=== PATIENT | female | born 1975 | race Caucasian/White ===

== ENCOUNTER 2016-08-17 19:12 | Emergency (ER) | payer SELFPAY ==
[2016-08-17] MEDS ORDERED: CLINDAMYCIN HCL 150 MG CAPSULE PO ONE (20:22)
--- NOTE | 2016-08-17 20:26 | ER Document Report ---
HPI - HPI Patient complains to provider of: r facial swelling Onset: Yesterday Onset/Duration: Gradual Quality of pain: Achy Pain Level: 2 Context: Complains of right jaw swelling that started yesterday. Patient states that she has increased swelling and pain with eating. Patient denies any fever or trauma. Patient denies any ear pain or dental infection. Associated Symptoms: Other - Jaw tenderness. denies: Fever Exacerbated by: Food Relieved by: Denies Similar symptoms previously: No Recently seen / treated by doctor: No - ROS ROS below otherwise negative: Yes Systems Reviewed and Negative: Yes All other systems reviewed and negative - CONSTITUTIONAL Constitutional: DENIES: Fever, Chills - EENT Notes: Jaw pain and swelling - NEURO Neurology: DENIES: Headache, Weakness - RESPIRATORY Respiratory: DENIES: Coughing - GASTROINTESTINAL Gastrointestinal: DENIES: Nausea - REPRODUCTIVE Reproductive: DENIES: : - MUSCULOSKELETAL Musculoskeletal: DENIES: Back Pain, Neck Pain - DERM Skin Color: Normal Past Medical History - General Information source: Patient - Social History Smoking Status: Current Every Day Smoker Frequency of alcohol use: Occasional Drug Abuse: None 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[employer] Family History: Reviewed & Not Pertinent Patient has suicidal ideation: No Patient has homicidal ideation: No - Past Medical History Cardiac Medical History: Reports: Hx Heart Attack, Hx Hypercholesterolemia, Hx Hypertension Renal/ Medical History: Denies: Hx Peritoneal Dialysis Psychiatric Medical History: Reports: Hx Attention Deficit Hyperactivity Disorder Past Surgical History: Reports: Hx Cardiac Surgery - Immunizations Hx Diphtheria, Pertussis, Tetanus Vaccination: No Vertical Provider Document - CONSTITUTIONAL Agree With Documented VS: Yes Exam Limitations: No Limitations General Appearance: WD/WN, No Apparent Distress - INFECTION CONTROL TRAVEL OUTSIDE OF THE [place] IN LAST 30 DAYS: No COUNTRY TRAVELED TO/FROM: [facility] - [facility] HEENT: Atraumatic, Normocephalic Notes: Parotid gland tenderness and swelling, no redness no purulent drainage noted from salivary duct - NECK Neck: Normal Inspection, Supple. negative: Lymphadenopathy-Left, Lymphadenopathy-Right - RESPIRATORY Respiratory: Breath Sounds Normal, No Respiratory Distress O2 Sat by Pulse Oximetry: 98 - CARDIOVASCULAR Cardiovascular: Regular Rate, Regular Rhythm - MUSCULOSKELETAL/EXTREMETIES Musculoskeletal/Extremeties: MAEW - NEURO Level of Consciousness: Awake, Alert, Appropriate Motor/Sensory: No Motor Deficit - DERM Integumentary: Warm, Dry Course - Re-evaluation Re-evalutation: 08/17/16 20:24 The patient has been informed that they may have pre-hypertension or hypertension based on a blood pressure reading in the emergency department. I recommend that patient call the primary care provider listed on their discharge instructions or a physician of their choice by this week to arrange follow-up for further evaluation of possible pre-hypertension her hypertension. Patient given an additional handout on parotitis. Patient given good return precautions. She advised that she will need to follow-up with ear nose and throat doctor - Vital Signs Vital signs: Temp Pulse Resp BP Pulse Ox 98.9 F 101 H 22 H 160/91 H 98 08/17/16 19:34 08/17/16 19:34 08/17/16 19:34 08/17/16 19:34 08/17/16 19:34 Discharge - Discharge Clinical Impression: Parotitis Condition: Stable Disposition: HOME, SELF-CARE Instructions: Acute Parotid Gland Swelling ([facility]), Clindamycin ([facility]) Additional Instructions: Return immediately for any new or worsening symptoms Followup with your primary care provider, call tomorrow to make a followup appointment Prescriptions: Clindamycin HCl [Cleocin Hcl] 300 mg PO QID #28 capsule Referrals: [facility] [Provider Group] - Follow up tomorrow
[2016-08-17 21:23] VITALS: BP 149/88
== END 2016-08-17 21:05 | disposition home or self-care (01) ==
LOC: ER 19:12
DX: K11.20 Sialoadenitis, unspecified (principal); R22.0 Localized swelling, mass and lump, head; R68.84 Jaw pain; F17.200 Nicotine dependence, unspecified, uncomplicated; E78.00 Pure hypercholesterolemia, unspecified; I10 Essential (primary) hypertension; I25.2 Old myocardial infarction
CPT/HCPCS: 99283

== ENCOUNTER 2016-11-21 15:30 | Emergency (ER) | payer SELFPAY ==
--- NOTE | 2016-11-21 15:58 | ER Document Report ---
ED Medical Screen (RME) - General Chief Complaint: Dizziness Stated Complaint: DIZZINESS Time Seen by Provider: 11/21/16 15:57 Mode of Arrival: Wheelchair Information source: Patient TRAVEL OUTSIDE OF THE [place] IN LAST 30 DAYS: No COUNTRY TRAVELED TO/FROM: [facility] - [facility] Patient complains to provider of: Dizziness Notes: 11/21/16 15:58 Patient is a 40-year-old female with a history of hypertension who presents to the emergency room today complaining of dizziness, initially she felt as though she was going to pass out, she had a episode of chest heaviness and nausea, shortly thereafter she felt like the room was spinning, the symptoms have since resolved but now she feels extremely tired and fatigued - Related Data Allergies/Adverse Reactions: ibuprofen [From Motrin] Allergy (Verified 11/21/16 15:34) Penicillins Allergy (Verified 11/21/16 15:34) Past Medical History - Past Medical History Cardiac Medical History: Reports: Hx Heart Attack, Hx Hypercholesterolemia, Hx Hypertension Renal/ Medical History: Denies: Hx Peritoneal Dialysis Psychiatric Medical History: Reports: Hx Attention Deficit Hyperactivity Disorder Past Surgical History: Reports: Hx Cardiac Surgery - Immunizations Hx Diphtheria, Pertussis, Tetanus Vaccination: No Physical Exam - Vital signs Vitals: Temp Pulse Resp BP Pulse Ox 97.4 F 99 22 H 136/71 H 94 11/21/16 15:34 11/21/16 15:34 11/21/16 15:34 11/21/16 15:34 11/21/16 15:34 Course - Vital Signs Vital signs: Temp Pulse Resp BP Pulse Ox 97.4 F 99 22 H 136/71 H 94 11/21/16 15:34 11/21/16 15:34 11/21/16 15:34 11/21/16 15:34 11/21/16 15:34
[2016-11-21 16:25] LABS: ABSOLUTE BASOPHILS # (AUTO) 0.1 10^3/uL (0.0-0.2); ABSOLUTE EOSINOPHILS # (AUTO) 0.1 10^3/uL (0.0-0.6); ABSOLUTE MONOCYTES (AUTO) 0.9 10^3/uL (0.1-1.4); ABSOLUTE NEUT (AUTO) 13.7 10^3/uL (1.7-8.2); BASOPHILS % (AUTO) 0.6 % (0-2); EOSINOPHILS % (AUTO) 0.6 % (0-6); HEMATOCRIT 44.7 % (36.0-47.0); HEMOGLOBIN 15.6 g/dL (12.0-15.5); HGB HCT DIFFERENCE 2.1; MEAN CORPUSCULAR HEMOGLOBIN 32.4 pg (27.0-33.4); MEAN CORPUSCULAR VOLUME 93 fl (80-97); MONOCYTES % (AUTO) 5.3 % (3-13); RED BLOOD COUNT 4.83 10^6/uL (3.72-5.28); RED CELL DISTRIBUTION WIDTH 14.1 % (11.5-14.0); SEGMENTED NEUTROPHILS % (AUTO) 81.5 % (42-78); WHITE BLOOD COUNT 16.8 10^3/uL (4.0-10.5)
[2016-11-21 16:44] LABS: ALANINE AMINOTRANSFERASE 39 U/L (9-52); ALBUMIN 4.4 g/dL (3.5-5.0); ALKALINE PHOSPHATASE 113 U/L (38-126); ANION GAP 11 (5-19); ASPARTATE AMINO TRANSFERASE 28 U/L (14-36); BILIRUBIN,DIRECT 0.5 mg/dL (0.0-0.4); BILIRUBIN,TOTAL 0.7 mg/dL (0.2-1.3); BLOOD UREA NITROGEN 16 mg/dL (7-20); CALCIUM 9.6 mg/dL (8.4-10.2); CARBON DIOXIDE 25 mmol/L (22-30); CHLORIDE 105 mmol/L (98-107); CREATINE KINASE 31 U/L (30-135); CREATININE RESULT 0.73 mg/dL (0.52-1.25); GLUCOSE 143 mg/dL (75-110); POTASSIUM 4.3 mmol/L (3.6-5.0); SODIUM 141.2 mmol/L (137-145); TOTAL PROTEIN 8.4 g/dL (6.3-8.2)
[2016-11-21 16:55] LABS: CREATINE KINASE MB 0.26 ng/mL (<4.55); TROPONIN I < 0.012 ng/mL
--- NOTE | 2016-11-21 17:34 | ER Document Report ---
ED Dizziness/Weakness <DOMURIAH - Last Filed: 11/21/16 20:20> - General Mode of Arrival: Wheelchair Information source: Patient TRAVEL OUTSIDE OF THE [place] IN LAST 30 DAYS: No COUNTRY TRAVELED TO/FROM: [place] <YODIT GUZMAN - Last Filed: 11/22/16 22:32> - General Chief Complaint: Dizziness Stated Complaint: DIZZINESS Time Seen by Provider: 11/21/16 15:57 Notes: 40 yo smoker, htn, hyperlipidemic, non dm, LMP IUD Merina, female c/o episode of dizziness like she was going to pass out few minutes at 2 pm at friends house. Playing care game, took a break sitting on sofa, room was spinning, got hot, sweaty, nausea, felt she was heavy, felt someone sitting on her chest, couldn't lift arms up- symptoms lasted 10minutes or more. [place] like she was [place]. Unsteady on feet when she stood up to come to ER-friend drove her. Never had this sx before. Have not felt right since- feels tired and body feels heavy. Overslept this am, has not eaten today, munched on some things. "bladder discomfot" thinks she has UTI. Slight headache top of head last few days. Taste off. PCP: Dr Houston Dimas. No dizziness, chest heaviness, or vertigo. fam hx: mother stroike at age 38 (YODIT GUZMAN) - Related Data Allergies/Adverse Reactions: ibuprofen [From Motrin] Allergy (Verified 11/21/16 15:34) Penicillins Allergy (Verified 11/21/16 15:34) Past Medical History - General Information source: Patient - Social History Smoking Status: Current Every Day Smoker Frequency of alcohol use: None Drug Abuse: None Occupation: suppposed to move to [place] today, truck broke down Lives with: Alone Family History: Reviewed & Not Pertinent - Past Medical History Cardiac Medical History: Reports: Hx Heart Attack, Hx Hypercholesterolemia, Hx Hypertension Renal/ Medical History: Denies: Hx Peritoneal Dialysis Psychiatric Medical History: Reports: Hx Attention Deficit Hyperactivity Disorder Past Surgical History: Reports: Hx Cardiac Surgery - Immunizations Hx Diphtheria, Pertussis, Tetanus Vaccination: No <YODIT GUZMAN - Last Filed: 11/22/16 22:32> Review of Systems - Review of Systems Constitutional: See HPI EENT: No symptoms reported Cardiovascular: See HPI Respiratory: No symptoms reported Gastrointestinal: No symptoms reported Genitourinary: No symptoms reported Female Genitourinary: No symptoms reported Musculoskeletal: No symptoms reported Skin: No symptoms reported Hematologic/Lymphatic: No symptoms reported Neurological/Psychological: See HPI <YODIT GUZMAN - Last Filed: 11/22/16 22:32> Physical Exam <URIAH FERNANDES - Last Filed: 11/21/16 20:20> - Vital signs Interpretation: Normal - General General appearance: Appears well, Alert In distress: None - HEENT Head: Normocephalic, Atraumatic Eyes: Normal Conjunctiva: Normal Extraocular movements intact: Yes Pupils: PERRL Tympanic membrane: Normal Mucous membranes: Normal Neck: Normal - Respiratory Respiratory status: No respiratory distress Chest status: Nontender Breath sounds: Normal Chest palpation: Normal - Cardiovascular Rhythm: Regular Heart sounds: Normal auscultation Murmur: No - Abdominal Inspection: Normal Distension: No distension Bowel sounds: Normal Tenderness: Nontender. No: Tender Organomegaly: No organomegaly - Back Back: Normal, Nontender - Extremities General upper extremity: Normal inspection, Nontender, Normal color, Normal ROM , Normal temperature General lower extremity: Normal inspection, Nontender, Normal color, Normal ROM , Normal temperature, Normal weight bearing. No: Aristides's sign - Neurological Neuro grossly intact: Yes Cognition: Normal Orientation: AAOx4 Jose Daniel Coma Scale Eye Opening: Spontaneous Jose Daniel Coma Scale Verbal: Oriented Jose Daniel Coma Scale Motor: Obeys Commands Jose Daniel Coma Scale Total: 15 Speech: Normal Motor strength normal: LUE, RUE, LLE, RLE Sensory: Normal - Psychological Associated symptoms: Normal affect, Normal mood - Skin Skin Temperature: Warm Skin Moisture: Dry Skin Color: Normal Skin irregularity: negative: Rash <YODIT GUZMAN - Last Filed: 11/22/16 22:32> - Vital signs Vitals: Temp Pulse Resp BP Pulse Ox 97.4 F 99 22 H 136/71 H 94 11/21/16 15:34 11/21/16 15:34 11/21/16 15:34 11/21/16 15:34 11/21/16 15:34 Notes: obese (YODIT GUZMAN) - Notes Notes: obese (YODIT GUZMAN) - Neurological Notes: slight dizzy without vertigo when sitting up in bed, orthostatics OK (YODIT GZUMAN) Course - Laboratory Result Diagrams: 11/21/16 16:15 11/21/16 16:15 <URIAH FERNANDES - Last Filed: 11/21/16 20:20> - Laboratory Result Diagrams: 11/21/16 16:15 11/21/16 16:15 <YODIT GUZMAN - Last Filed: 11/22/16 22:32> - Re-evaluation Re-evalutation: 11/21/16 20:20 Patient refusing to wait for her repeat blood work, she states she will refuse admission and transport to another facility if that is whats indicated. Patient is requesting to leave. After performing a Medical Screening Examination, I spoke with the patient at length in regards to leaving the hospital against medical advice. I do not believe the patient should leave but the patient is alert oriented x4, understands the risks and benefits of staying and leaving including disability and . Pt understands that he can return at any time for further care and is more than welcome to do so. Pt verbalizes this understanding. (URIAH FERNANDES) 11/21/16 17:[address] zamudio who pivot her, no CT needed. get 4 hour troponin level. 11/21/16 18:50 Patient now states that she is having heartburn all day with an acid feeling in her throat. She usually takes Pepcid AC but she ran out of it. He had an aspirin 324 mg since it was recommended to get a 4 hour troponin level and a dose of Prevacid 30 mg ODT and Pepcid 40 mg p.o. ordered, she is eating barbecued sandwich that a friend brought her. 11/21/16 19:23 care transferred to uriah BALDERRAMA at the bedside. (YODIT GUZMAN) - Vital Signs Vital signs: Temp Pulse Resp BP Pulse Ox 97.8 F 88 21 H 120/75 97 11/21/16 19:15 11/21/16 17:51 11/21/16 20:01 11/21/16 20:01 11/21/16 20:01 - Laboratory Laboratory results interpreted by me: 11/21/16 11/21/16 11/21/16 16:15 16:15 16:55 WBC 16.8 H Hgb 15.6 H RDW 14.1 H Seg Neutrophils % 81.5 H Lymphocytes % 12.0 L Absolute Neutrophils 13.7 H Glucose 143 H Direct Bilirubin 0.5 H Total Protein 8.4 H Urine Urobilinogen 2.0 H Discharge <URIAH FERNANDES - Last Filed: 11/21/16 20:20> <YODIT GUZMAN - Last Filed: 11/22/16 22:32> - Discharge Clinical Impression: Chest pain Condition: Stable Disposition: AGAINST MEDICAL ADVICE
--- NOTE | 2016-11-21 17:40 | EKG REPORT ---
SEVERITY:- NORMAL ECG - SINUS RHYTHM : Confirmed by: Myke Nunez MD 21-Nov-2016 17:40:01
[2016-11-21 18:06] LABS: APPEARANCE,URINE SLIGHTLY-CLOUDY; BILIRUBIN,URINE NEGATIVE (NEGATIVE); GLUCOSE, URINE NEGATIVE (NEGATIVE); KETONES,URINE NEGATIVE (NEGATIVE); LEUKOCYTE ESTERASE,URINE NEGATIVE (NEGATIVE); NITRITE,URINE NEGATIVE (NEGATIVE); PROTEIN,URINE NEGATIVE (NEGATIVE); URINE SPECIFIC GRAVITY 1.026
[2016-11-21] MEDS ORDERED: MECLIZINE HCL 25 MG TABLET PO ONE (18:08)
--- NOTE | 2016-11-21 18:44 | RADIOLOGY REPORT (SQ) ---
EXAM DESCRIPTION: CHEST PA/LAT COMPLETED DATE/TIME: 11/21/2016 6:08 pm REASON FOR STUDY: chest heaviness COMPARISON: 05/18/2015 EXAM PARAMETERS: NUMBER OF VIEWS: two views TECHNIQUE: Digital Frontal and Lateral radiographic views of the chest acquired. RADIATION DOSE: NA LIMITATIONS: none FINDINGS: LUNGS AND PLEURA: No acute opacities, masses or pneumothorax. No pleural effusion. MEDIASTINUM AND HILAR STRUCTURES: Stable. HEART AND VASCULAR STRUCTURES: Heart normal size. No evidence for failure. BONES: No acute findings. HARDWARE: None in the chest. OTHER: No other significant finding. IMPRESSION: No acute findings. TECHNICAL DOCUMENTATION: JOB ID: [id number] [employer]- All Rights Reserved
[2016-11-21] MEDS ORDERED: FAMOTIDINE 20 MG TABLET PO ONE (18:49)
[2016-11-21] MEDS ORDERED: LANSOPRAZOLE 30 MG TAB.RAP.DR PO ONE (18:49)
[2016-11-21] MEDS ORDERED: ASPIRIN 81 MG TABLET, CHEWABLE PO ONE (18:49)
[2016-11-21 20:11] VITALS: BP 120/75
== END 2016-11-21 20:25 | disposition left against medical advice (07) ==
LOC: ER 15:30
DX: R07.9 Chest pain, unspecified (principal); R42 Dizziness and giddiness; F17.200 Nicotine dependence, unspecified, uncomplicated; I25.2 Old myocardial infarction
CPT/HCPCS: 36415; 71020; 80053; 81001; 81025; 82550; 82553; 84484; 85025; 93005; 93010; 99284

== ENCOUNTER 2017-06-22 16:38 | Emergency (ER) | payer SELFPAY ==
--- NOTE | 2017-06-22 17:44 | ER Document Report ---
ED Medical Screen (RME) - General Chief Complaint: Dizziness Stated Complaint: WEAKNESS Time Seen by Provider: 06/22/17 17:34 Mode of Arrival: Ambulatory Information source: Patient Notes: 41-year-old female with a history of angina, palpitations, hypertension, hyperlipidemia, CAD presents with complaint of fatigue, dizziness, and intermittent chest pain. Chest pain is described as tightness, brief and chronic for the patient. Patient's symptoms started 4 days prior to arrival. She describes the dizziness as feeling off balance. She denies any recent falls or prior similar symptoms. Patient reports that she had a low blood pressure reading earlier today. She has not been taking any of her medications for approximately 6 months. She denies fever, chills, nausea, vomiting, nasal congestion, cough, chest pain, shortness of breath, dysuria. I have greeted and performed a rapid medical assessment of the patient. A comprehensive evaluation and assessment will be performed by another ED provider. Medical decision making, lab review/xrays if performed will be reviewed by the ED provider assuming care of the patient. PHYSICAL EXAMINATION: GENERAL: Well-appearing, well-nourished and in no acute distress. HEAD: Atraumatic, normocephalic. EYES: Pupils equal round extraocular movements intact, conjunctiva are normal. No nystagmus ENT: Nares patent NECK: Normal range of motion LUNGS: No respiratory distress, CTAB Musculoskeletal: Normal range of motion NEUROLOGICAL: Normal speech, normal gait. PSYCH: Normal mood, normal affect. SKIN: Warm, Dry, normal turgor, no rashes or lesions noted. TRAVEL OUTSIDE OF THE U.S. IN LAST 30 DAYS: No COUNTRY TRAVELED TO/FROM: [facility] - [facility] Onset: Last week Onset/Duration: Gradual Quality of pain: No pain Associated Symptoms: Dizzy/lightheaded Exacerbated by: Denies Relieved by: Denies Similar symptoms previously: No Recently seen / treated by doctor: No - Related Data Smoking: Non-smoker Frequency of alcohol use: Occasional Drug Abuse: None Allergies/Adverse Reactions: ibuprofen [From Motrin] Allergy (Verified 06/22/17 16:40) Penicillins Allergy (Verified 06/22/17 16:40) Past Medical History - Social History Chew tobacco use (# tins/day): No Frequency of alcohol use: None Drug Abuse: None - Past Medical History Cardiac Medical History: Reports: Hx Heart Attack, Hx Hypercholesterolemia, Hx Hypertension Renal/ Medical History: Denies: Hx Peritoneal Dialysis Psychiatric Medical History: Reports: Hx Attention Deficit Hyperactivity Disorder Past Surgical History: Reports: Hx Cardiac Surgery - Immunizations Hx Diphtheria, Pertussis, Tetanus Vaccination: No Physical Exam - Vital signs Vitals: Temp Pulse Resp BP Pulse Ox 97.3 F 92 22 H 151/101 H 98 06/22/17 16:42 06/22/17 16:42 06/22/17 16:42 06/22/17 16:42 06/22/17 16:42 Course - Vital Signs Vital signs: Temp Pulse Resp BP Pulse Ox 97.3 F 92 22 H 151/101 H 98 06/22/17 16:42 06/22/17 16:42 06/22/17 16:42 06/22/17 16:42 06/22/17 16:42
[2017-06-22 18:17] LABS: ABSOLUTE BASOPHILS # (AUTO) 0.1 10^3/uL (0.0-0.2); ABSOLUTE MONOCYTES (AUTO) 0.3 10^3/uL (0.1-1.4); ABSOLUTE NEUT (AUTO) 12.9 10^3/uL (1.7-8.2); BASOPHILS % (AUTO) 0.7 % (0-2); EOSINOPHILS % (AUTO) 0.1 % (0-6); HEMATOCRIT 44.5 % (36.0-47.0); HEMOGLOBIN 14.8 g/dL (12.0-15.5); LYMPHOCYTES % (AUTO) 7.1 % (13-45); MEAN CORPUSCULAR HGB CONC 33.2 g/dL (32.0-36.0); MEAN CORPUSCULAR VOLUME 90 fl (80-97); MONOCYTES % (AUTO) 1.9 % (3-13); PLATELET COUNT 274 10^3/uL (150-450); RED BLOOD COUNT 4.94 10^6/uL (3.72-5.28); RED CELL DISTRIBUTION WIDTH 13.6 % (11.5-14.0); SEGMENTED NEUTROPHILS % (AUTO) 90.2 % (42-78); TOTAL CELLS COUNTED % (AUTO) 100 %; WHITE BLOOD COUNT 14.3 10^3/uL (4.0-10.5)
[2017-06-22 18:23] LABS: AMORPHOUS SEDIMENT,URINE TRACE /HPF; APPEARANCE,URINE TURBID; BILIRUBIN,URINE NEGATIVE (NEGATIVE); COLOR,URINE YELLOW; GLUCOSE, URINE NEGATIVE (NEGATIVE); KETONES,URINE NEGATIVE (NEGATIVE); LEUKOCYTE ESTERASE,URINE SMALL (NEGATIVE); NITRITE,URINE NEGATIVE (NEGATIVE); PROTEIN,URINE NEGATIVE (NEGATIVE); URINE SPECIFIC GRAVITY 1.025; UROBILINOGEN,URINE NEGATIVE mg/dL (<2.0)
[2017-06-22 18:39] LABS: ALANINE AMINOTRANSFERASE 32 U/L (9-52); ALBUMIN 4.3 g/dL (3.5-5.0); ALKALINE PHOSPHATASE 82 U/L (38-126); ANION GAP 11 (5-19); ASPARTATE AMINO TRANSFERASE 21 U/L (14-36); BILIRUBIN,DIRECT 0.3 mg/dL (0.0-0.4); BILIRUBIN,TOTAL 0.5 mg/dL (0.2-1.3); BLOOD UREA NITROGEN 17 mg/dL (7-20); CARBON DIOXIDE 27 mmol/L (22-30); CHLORIDE 103 mmol/L (98-107); CREATINE KINASE 36 U/L (30-135); GLUCOSE 142 mg/dL (75-110); POTASSIUM 4.7 mmol/L (3.6-5.0); SODIUM 141.3 mmol/L (137-145)
[2017-06-22 18:53] LABS: CREATINE KINASE MB 0.29 ng/mL (<4.55)
[2017-06-22 18:54] LABS: TROPONIN I < 0.012 ng/mL
--- NOTE | 2017-06-22 19:39 | ER Document Report ---
ED General - General Chief Complaint: Dizziness Stated Complaint: WEAKNESS Time Seen by Provider: 06/22/17 17:34 Mode of Arrival: Ambulatory TRAVEL OUTSIDE OF THE [place] IN LAST 30 DAYS: No COUNTRY TRAVELED TO/FROM: [facility] Notes: Patient is a 41-year-old female with a history of angina, palpitations, hypertension, hyperlipidemia, CAD with IN 3 years ago and stent placed who presents to the ED complaining of generalized weakness. Patient states that she has occasional chest tightness which she has had chronically and currently has been asymptomatic for that for the last couple days. Patient states that she also developed some dizziness a few days ago, but has not been dizzy today. Patient states that she overall feels "okay" but feels weak. She is eating and drinking without any difficulties. She is urinating normally and having normal bowel movements. She has no concern of any pain. Denies any recent illness. Patient is a former smoker and denies IV drug use. She recently quit smoking about a month ago. Patient states that she has not been evaluated by primary care doctor in the last 6 months. Denies any headache, fever, head injury, neck pain, changes in vision/speech/mentation/hearing, URI, sore throat , chest pain, palpitations, syncope, cough, shortness of breath, wheeze, dyspnea , abdominal pain, nausea/vomiting/diarrhea, urinary retention, dysuria, hematuria, loss of control of bowel or bladder, numbness/tingling, muscle paralysis/weakness, or rash. No prolonged immobilization, recent surgery/trauma , previous DVT/PE, hormone use. - Related Data Allergies/Adverse Reactions: ibuprofen [From Motrin] Allergy (Verified 06/22/17 16:40) Penicillins Allergy (Verified 06/22/17 16:40) Past Medical History - General Information source: Patient - Social History Smoking Status: Former Smoker Chew tobacco use (# tins/day): No Frequency of alcohol use: None Drug Abuse: None Family History: Reviewed & Not Pertinent Patient has suicidal ideation: No Patient has homicidal ideation: No - Past Medical History Cardiac Medical History: Reports: Hx Heart Attack, Hx Hypercholesterolemia, Hx Hypertension Renal/ Medical History: Denies: Hx Peritoneal Dialysis Psychiatric Medical History: Reports: Hx Attention Deficit Hyperactivity Disorder Past Surgical History: Reports: Hx Cardiac Surgery - Immunizations Hx Diphtheria, Pertussis, Tetanus Vaccination: No Review of Systems - Review of Systems -: Yes All other systems reviewed and negative Physical Exam - Vital signs Vitals: Temp Pulse Resp BP Pulse Ox 97.3 F 92 22 H 151/101 H 98 06/22/17 16:42 06/22/17 16:42 06/22/17 16:42 06/22/17 16:42 06/22/17 16:42 - Notes Notes: PHYSICAL EXAMINATION: GENERAL: Well-appearing, well-nourished and in no acute distress. A&Ox4. Answers questions appropriately. HEAD: Atraumatic, normocephalic. EYES: Pupils equal round and reactive to light, extraocular movements intact, sclera anicteric, conjunctiva are normal. ENT: EAC clear b/l. TM's intact b/l without erythema, fluid, or perforation. Nares patent and without discharge. oropharynx clear without exudates. No tonsilar hypertrophy or erythema. Moist mucous membranes. No sinus tenderness. NECK: Normal range of motion, supple without lymphadenopathy. No kernig/ brudzinski. LUNGS: Breath sounds clear to auscultation bilaterally and equal. No wheezes rales or rhonchi. HEART: Regular rate and rhythm without murmurs, rubs, gallops. ABDOMEN: Soft, nontender, nondistended abdomen. No guarding, no rebound. No masses appreciated. Normal bowel sounds present. No CVA tenderness bilaterally. Musculoskeletal: FROM to passive/active. Strength 5+/5. Aristides neg. Extremities: No cyanosis, clubbing, or edema b/l. Peripheral pulses 2+. Capillary refill less than 3 seconds. NEUROLOGICAL: Cranial nerves grossly intact. Normal speech, normal gait. Normal sensory, motor exams PSYCH: Normal mood, normal affect. SKIN: Warm, Dry, normal turgor, no rashes or lesions noted. Course - Re-evaluation Re-evalutation: 06/22/17 21:46 Patient is an afebrile, well-hydrated, 41-year-old female who presents to the ED with generalized weakness unspecified. She has no other symptoms at this time. Vitals are acceptable. PE is otherwise unremarkable. CBC, CMP, EKG, cardiac enzymes 2, thyroid panel were unremarkable for any acute pathology. Her urinalysis did show what could be deemed as a mild UTI, the patient is currently symptomatic. I did review with Dr. Castellanos who is in agreement with treatment pending urine culture. Her abdomen is otherwise soft and nontender. She is nontoxic-appearing. She has no significant tachycardia, tachypnea, or hypoxia. PERC negative. heart score of 1. Patient has not had any chest pain or dyspnea on exertion. No other labs or imaging warranted at this time based on H&P. Patient is tolerating p.o. without any difficulties. Low suspicion for any sepsis, meningitis, severe dehydration, respiratory compromise, or other systemic emergent condition at this time. Patient is aware that condition can change from initial presentation and she needs to monitor symptoms closely and seek medical attention with any acute changes. Conservative measures otherwise for symptoms. Recheck with your PCM in 3-5 days. Return to the ED with any worsening/concerning symptoms otherwise as reviewed discharge. Patient is in agreement. - Vital Signs Vital signs: Temp Pulse Resp BP Pulse Ox 97.3 F 78 16 142/75 H 97 06/22/17 16:42 06/22/17 18:40 06/22/17 21:01 06/22/17 21:01 06/22/17 21:01 - Laboratory Result Diagrams: 06/22/17 17:52 06/22/17 17:52 Laboratory results interpreted by me: 06/22/17 06/22/17 06/22/17 16:50 17:52 17:52 WBC 14.3 H Seg Neutrophils % 90.2 H Lymphocytes % 7.1 L Monocytes % 1.9 L Absolute Neutrophils 12.9 H Glucose 142 H Urine Blood LARGE H Ur Leukocyte Esterase SMALL H Discharge - Discharge Clinical Impression: Generalized weakness Condition: Stable Disposition: HOME, SELF-CARE Additional Instructions: Maintain adequate fluid and food intake Take home medications as directed Low sodium/fat diet Exercise regularly Weight control Monitor blood pressure daily and keep a log Monitor symptoms for any acute changes Recheck with your PCM in 3-5 days Return to the ED with any worsening symptoms and/or development of fever, headache, chest pain, palpitations, syncope, shortness of breath, trouble breathing, abdominal pain, n/v/d, blood in stool/urine, loss of control of bowel /bladder, urinary retention, muscle weakness/paralysis, numbness/tingling, or other worsening symptoms that are concerning to you. Forms: Elevated Blood Pressure Referrals: [facility] [Provider Group] - Follow up as needed [facility] [Provider Group] - Follow up as needed
[2017-06-22 20:05] LABS: FREE T3 4.29 pg/mL (2.77-5.27); FREE T4 (FREE THYROXINE) 1.14 ng/dL (0.78-2.19)
[2017-06-22 20:18] LABS: THYROID STIMULATING HORMONE 0.72 uIU/mL (0.47-4.68)
[2017-06-22 21:03] VITALS: BP 142/75
--- NOTE | 2017-06-22 22:43 | EKG REPORT ---
SEVERITY:- NORMAL ECG - SINUS RHYTHM : Confirmed by: Jose Miller 22-Jun-2017 19:43:00
== END 2017-06-22 22:31 | disposition home or self-care (01) ==
LOC: ER 16:38
DX: R53.1 Weakness (principal); R42 Dizziness and giddiness; R07.9 Chest pain, unspecified; I10 Essential (primary) hypertension; I25.10 Atherosclerotic heart disease of native coronary artery without angina pectoris; I25.2 Old myocardial infarction; Z87.891 Personal history of nicotine dependence
CPT/HCPCS: 36415; 80053; 81001; 81025; 82550; 82553; 84439; 84443; 84481; 84484; 85025; 87086; 93005; 93010; 99284

== ENCOUNTER 2017-12-08 16:49 | Observation (INO) | payer SELFPAY ==
[2017-12-08] MEDS ORDERED: VANCOMYCIN HCL INJ 1000 MG VIAL IV ONE (17:35)
--- NOTE | 2017-12-08 17:38 | ER Document Report ---
ED General - General Chief Complaint: Abscess Stated Complaint: POSSIBLE ABSCESS Time Seen by Provider: 12/08/17 17:34 TRAVEL OUTSIDE OF THE [place] IN LAST 30 DAYS: No COUNTRY TRAVELED TO/FROM: [facility] - [facility] Notes: Patient is a 41-year-old female with a history of previous abscess, CAD with stent placement in 2014, and hypertension who presents to the ED complaining of possible abscess to her left axilla times 5 days. Patient states that is been getting larger and more painful. Pain does not radiate. She is otherwise eating and drinking without difficulties. She is urinating normally. No history of MRSA or IV drug abuse. Denies any headache, fever, URI, sore throat , chest pain, palpitations, syncope, cough, shortness of breath, wheeze, dyspnea , abdominal pain, nausea/vomiting/diarrhea, urinary retention, dysuria, hematuria. - Related Data Allergies/Adverse Reactions: ibuprofen [From Motrin] Allergy (Verified 12/08/17 16:51) Penicillins Allergy (Verified 12/08/17 16:51) Past Medical History - Social History Smoking Status: Former Smoker Family History: Reviewed & Not Pertinent - Past Medical History Cardiac Medical History: Reports: Hx Heart Attack, Hx Hypercholesterolemia, Hx Hypertension Renal/ Medical History: Denies: Hx Peritoneal Dialysis Psychiatric Medical History: Reports: Hx Attention Deficit Hyperactivity Disorder Past Surgical History: Reports: Hx Cardiac Surgery - Immunizations Hx Diphtheria, Pertussis, Tetanus Vaccination: No Review of Systems - Review of Systems -: Yes All other systems reviewed and negative Physical Exam - Vital signs Vitals: Temp Pulse Resp BP Pulse Ox 99.6 F 95 16 148/80 H 98 12/08/17 16:54 12/08/17 16:54 12/08/17 16:54 12/08/17 16:54 12/08/17 16:54 - Notes Notes: PHYSICAL EXAMINATION: GENERAL: Well-appearing, well-nourished and in no acute distress. A&Ox4. Answers questions appropriately. HEAD: Atraumatic, normocephalic. EYES: Pupils equal round and reactive to light, extraocular movements intact, sclera anicteric, conjunctiva are normal. ENT: Nares patent and without discharge. oropharynx clear without exudates. No tonsilar hypertrophy or erythema. Moist mucous membranes. NECK: Normal range of motion, supple without lymphadenopathy LUNGS: Breath sounds clear to auscultation bilaterally and equal. No wheezes rales or rhonchi. HEART: Regular rate and rhythm without murmurs, rubs, gallops. ABDOMEN: Soft, nontender, nondistended abdomen. No guarding, no rebound. No masses appreciated. Normal bowel sounds present. No CVA tenderness bilaterally. Musculoskeletal: FROM to passive/active. Strength 5+/5. Extremities: No cyanosis, clubbing, or edema b/l. Peripheral pulses 2+. Capillary refill less than 3 seconds. NEUROLOGICAL: Cranial nerves grossly intact. Normal speech, normal gait. Normal sensory, motor exams PSYCH: Normal mood, normal affect. SKIN: Left axilla: there is a large area (approx 7cm diam) of induration with smaller area of fluctuance and tenderness associated. No streaks. Course - Re-evaluation Re-evalutation: 12/08/17 17:42 Patient is adamantly refusing bedside incision and drainage. Patient states that she has had these before and it was too painful for her and she needs to be knocked out. Patient states that she is preferably looking for p.o. antibiotics to go home with. I reviewed with the patient that her abscess is too large and needs to be cut open and drained. I reviewed that p.o. antibiotics may not resolve her symptoms and her symptoms may worsen developing into sepsis. I reviewed with patient that we can contact the surgeon and see if he would be willing to do it in the OR which she is agreeable to. I did speak with Dr. Bangura who is agreeable to performing the procedure and will come evaluate the patient. Preop workup has been started. He would like vancomycin started IV. Patient to be n.p.o. after midnight. - Vital Signs Vital signs: Temp Pulse Resp BP Pulse Ox 99.6 F 95 16 148/80 H 98 12/08/17 16:54 12/08/17 16:54 12/08/17 16:54 12/08/17 16:54 12/08/17 16:54 Discharge - Discharge Clinical Impression: Abscess Condition: Stable Disposition: ADMITTED INPATIENT Admitting Provider: Surgicalist - Dr. Bangura Unit Admitted: Surgical Floor
[2017-12-08] MEDS ORDERED: ONDANSETRON HCL INJ/PF 4 MG/2 ML SDV IV PRN (18:37)
[2017-12-08] MEDS ORDERED: HYDROCODONE/ACETAMINOPHEN 5-325 MG TABLET PO PRN (18:40)
[2017-12-08] MEDS ORDERED: MORPHINE SULFATE 10 MG/ML INJ IV PRN (18:41)
[2017-12-08] MEDS ORDERED: VANCOMYCIN HCL 0 MG in DEXTROSE 5%-WATER 250 ML IV NR (18:45)
--- NOTE | 2017-12-08 18:57 | RADIOLOGY REPORT (SQ) ---
EXAM DESCRIPTION: CHEST 2 VIEWS COMPLETED DATE/TIME: 12/08/2017 6:19 pm REASON FOR STUDY: pre-op COMPARISON: 11/21/2016 EXAM PARAMETERS: NUMBER OF VIEWS: two views TECHNIQUE: Digital Frontal and Lateral radiographic views of the chest acquired. RADIATION DOSE: NA LIMITATIONS: none FINDINGS: LUNGS AND PLEURA: No opacities, masses or pneumothorax. No pleural effusion. Azygos fissu re of the right upper lobe. MEDIASTINUM AND HILAR STRUCTURES: No masses or contour abnormalities. HEART AND VASCULAR STRUCTURES: Heart normal size. No evidence for failure. BONES: Unchanged multilevel compression deformities of the lower thoracic and visualized upper lumbar spine appear HARDWARE: None in the chest. OTHER: No other significant finding. IMPRESSION: NO ACUTE RADIOGRAPHIC FINDING IN THE CHEST. TECHNICAL DOCUMENTATION: JOB ID: [id number] [employer]- All Rights Reserved Reading location - IP/workstation name: [email or web address]
--- NOTE | 2017-12-08 19:08 | PDOC H&P ---
History of Present Illness Admission Date/PCP: DIEGO DYE MD Patient complains of: Left axillary pain, drainage, erythema, and induration. Right axillary drainage. History of Present Illness: PERFECTO DIAZ is a 41 year old female with a long history of axillary hidradenitis. The patient has had several infections in bilateral axilla. She usually takes antibiotics for it. Her left axillary abscess is getting worse. She has never had surgery for this. She has a one-week history of increasing swelling, pain, redness of the left axilla. She also reports frequent drainage from a sinus tract in the right axilla. At its worst, her pain is 8 out of 10. Nothing makes her pain better. Palpation and movement make it worse. The pain does not radiate. She denies smoking. She denies headache, dizziness, fevers, chills, malaise, fatigue, nausea, vomiting, melena, hematochezia, hematemesis, chest pain, shortness of breath, blurry vision. Past Medical History Cardiac Medical History: Reports: Myocardial Infarction, Hyperlipidema, Hypertension Psychiatric Medical History: Reports: Attention Deficit Hyperactivity Disorder Past Surgical History Past Surgical History: Reports: Coronary Stent Social History Smoking Status: Former Smoker Family History Family History: Reviewed & Not Pertinent Parental Family History Reviewed: Yes Children Family History Reviewed: Yes Sibling(s) Family History Reviewed.: Yes Medication/Allergy Home Medications: No Home Medications 06/22/17 Allergies/Adverse Reactions: ibuprofen [From Motrin] Allergy (Verified 12/08/17 16:51) Penicillins Allergy (Verified 12/08/17 16:51) Review of Systems Constitutional: ABSENT: anorexia, chills, fatigue, fever(s) Eyes: ABSENT: visual disturbances Ears: ABSENT: hearing changes Nose, Mouth, and Throat: ABSENT: sore throat Cardiovascular: ABSENT: chest pain, orthropnea Respiratory: ABSENT: cough, dyspnea Gastrointestinal: ABSENT: abdominal pain, heartburn, hematemesis, hematochezia, melena, nausea, vomiting Genitourinary: ABSENT: dysuria Musculoskeletal: ABSENT: back pain Integumentary: PRESENT: other - Tender, red, indurated left axillary abscess.. ABSENT: pruritus Neurological: ABSENT: confusion, convulsions, dizziness Psychiatric: ABSENT: anxiety, depression Endocrine: ABSENT: cold intolerance, heat intolerance Hematologic/Lymphatic: ABSENT: easy bleeding, easy bruising Physical Exam Vital Signs: Temp Pulse Resp BP Pulse Ox 99.6 F 95 16 148/80 H 98 12/08/17 16:54 12/08/17 16:54 12/08/17 16:54 12/08/17 16:54 12/08/17 16:54 Intake & Output 12/07/17 12/08/17 12/09/17 06:59 06:59 06:59 Weight 173.5 kg General appearance: PRESENT: morbidly obese Head exam: PRESENT: atraumatic, normocephalic Eye exam: PRESENT: EOMI, PERRLA. ABSENT: scleral icterus Mouth exam: PRESENT: moist, neck supple Neck exam: ABSENT: meningismus, tenderness, thyromegaly, tracheal deviation Respiratory exam: PRESENT: clear to auscultation min, unlabored. ABSENT: chest wall tenderness, tachypnea, wheezes Pulses: PRESENT: normal radial pulses Vascular exam: PRESENT: normal capillary refill. ABSENT: pallor GI/Abdominal exam: PRESENT: soft. ABSENT: distended, guarding, hernia, tenderness Rectal exam: PRESENT: deferred Extremities exam: ABSENT: clubbing Musculoskeletal exam: ABSENT: deformity Neurological exam: PRESENT: alert, awake, oriented to person, oriented to place , oriented to time, oriented to situation, CN II-XII grossly intact Psychiatric exam: ABSENT: agitated, anxious, depressed Focused psych exam: ABSENT: delusional Skin exam: PRESENT: erythema - Left axilla, other - Fluctuant abscess in the left axilla. No purulent drainage. Fistula tract in the right axilla with purulent drainage. Assessment & Plan - Diagnosis (1) Axillary hidradenitis suppurativa Is this a current diagnosis for this admission?: Yes (2) Axillary abscess Is this a current diagnosis for this admission?: Yes - Plan Summary Plan Summary: This is a 41-year-old female with a long history of hidradenitis. She now has a left axillary abscess. She also has a right axillary fistula tract. She is requesting surgical intervention to excise these areas. Allowing the wounds to heal by secondary intention would be preferable in the face of infection. The patient ate 1 hour before presenting to the hospital. I will admit the patient to the hospital, make her n.p.o. after midnight, and add her onto the surgical schedule for tomorrow. This has been discussed at length with the patient. She is in agreement with the treatment plan.
[2017-12-08 20:02] LABS: ABSOLUTE EOSINOPHILS # (AUTO) 0.1 10^3/uL (0.0-0.6); ABSOLUTE LYMPHOCYTES (AUTO) 2.7 10^3/uL (0.5-4.7); ABSOLUTE MONOCYTES (AUTO) 0.9 10^3/uL (0.1-1.4); BASOPHILS % (AUTO) 0.3 % (0-2); HEMATOCRIT 43.2 % (36.0-47.0); HEMOGLOBIN 14.8 g/dL (12.0-15.5); LYMPHOCYTES % (AUTO) 19.3 % (13-45); MEAN CORPUSCULAR HEMOGLOBIN 30.9 pg (27.0-33.4); MEAN CORPUSCULAR HGB CONC 34.2 g/dL (32.0-36.0); MEAN CORPUSCULAR VOLUME 90 fl (80-97); MONOCYTES % (AUTO) 6.9 % (3-13); PLATELET COUNT 274 10^3/uL (150-450); RED BLOOD COUNT 4.78 10^6/uL (3.72-5.28); RED CELL DISTRIBUTION WIDTH 13.6 % (11.5-14.0); SEGMENTED NEUTROPHILS % (AUTO) 72.5 % (42-78); TOTAL CELLS COUNTED % (AUTO) 100 %; WHITE BLOOD COUNT 13.8 10^3/uL (4.0-10.5)
[2017-12-08] MEDS: DEXTROSE 5%-LACTATED RINGERS 1,000 ML IV PRN (20:02)
[2017-12-08 20:13] LABS: ALANINE AMINOTRANSFERASE 15 U/L (9-52); ALBUMIN 4.6 g/dL (3.5-5.0); ALKALINE PHOSPHATASE 94 U/L (38-126); ANION GAP 13 (5-19); ASPARTATE AMINO TRANSFERASE 17 U/L (14-36); BILIRUBIN,DIRECT 0.3 mg/dL (0.0-0.4); BILIRUBIN,TOTAL 0.7 mg/dL (0.2-1.3); BLOOD UREA NITROGEN 14 mg/dL (7-20); CALCIUM 9.7 mg/dL (8.4-10.2); CARBON DIOXIDE 27 mmol/L (22-30); CHLORIDE 101 mmol/L (98-107); GLUCOSE 113 mg/dL (75-110); POTASSIUM 4.5 mmol/L (3.6-5.0); SODIUM 141.3 mmol/L (137-145); TOTAL PROTEIN 8.6 g/dL (6.3-8.2)
--- NOTE | 2017-12-08 20:43 | EKG REPORT ---
SEVERITY:- NORMAL ECG - SINUS RHYTHM : Confirmed by: Daisy Hutchison MD 08-Dec-2017 20:42:28
[2017-12-09] MEDS: VANCOMYCIN HCL 1,500 MG in DEXTROSE 5%-WATER 250 ML IV SCH ×2 (01:02→15:01)
[2017-12-09] MEDS ORDERED: ONDANSETRON HCL INJ/PF 4 MG/2 ML SDV ONE (08:07)
[2017-12-09] MEDS ORDERED: DEXAMETHASONE SOD PHOSPHATE INJ 4 MG/1 ML VIAL ONE (08:07)
[2017-12-09] MEDS ORDERED: METOCLOPRAMIDE HCL INJ/PF 10 MG/2 ML SDV ONE (08:07)
[2017-12-09] MEDS ORDERED: BUPIVACAINE HCL 0.5 % INJ/PF 30 ML SDV ONE ×2 (08:53→11:56)
[2017-12-09] MEDS: DEXTROSE 5%-LACTATED RINGERS 1,000 ML IV PRN (09:07)
[2017-12-09] MEDS ORDERED: FENTANYL CITRATE INJ/PF 100 MCG/2 ML AMPUL ONE (10:50)
[2017-12-09] MEDS ORDERED: KETAMINE HCL INJ 500 MG/10 ML VIAL ONE (10:50)
[2017-12-09] MEDS ORDERED: MIDAZOLAM 2 MG/2 ML INJ ONE (10:50)
[2017-12-09] MEDS ORDERED: PROPOFOL INJ 200 MG/20 ML VIAL IV ONE (10:51)
[2017-12-09] MEDS ORDERED: DEXMEDETOMIDINE INJ 80 MCG/20 ML VIAL IV ONE (10:51)
[2017-12-09] MEDS ORDERED: ACETAMINOPHEN 1,000 MG/100 ML RTUPB IV ONE (10:52)
[2017-12-09] MEDS ORDERED: LIDOCAINE 2% INJ-PF (20 MG/ML) 10 ML AMPUL ONE (11:00)
[2017-12-09] MEDS ORDERED: MORPHINE SULFATE 10 MG/ML INJ ONE (11:21)
[2017-12-09] MEDS ORDERED: METOPROLOL TARTRATE PF/INJ 5 MG/5 ML SDV IV ONE (11:21)
[2017-12-09] MEDS ORDERED: LIDOCAINE 0.5% INJ-PF (5 MG/ML) 50 ML SDV ONE (11:56)
[2017-12-09] MEDS ORDERED: PROMETHAZINE HCL INJ 25 MG/1 ML VIAL IV PRN ×2 (12:04)
[2017-12-09] MEDS ORDERED: MEPERIDINE HCL/PF INJ 25 MG/1 ML DISP.SYRIN IV PRN (12:04)
[2017-12-09] MEDS ORDERED: FENTANYL CITRATE INJ/PF 100 MCG/2 ML AMPUL IV PRN ×3 (12:04)
[2017-12-09] MEDS ORDERED: DIPHENHYDRAMINE HCL 50 MG/ML VIAL IV PRN (12:04)
[2017-12-09] MEDS ORDERED: ONDANSETRON HCL INJ/PF 4 MG/2 ML SDV IV PRN (12:04)
--- NOTE | 2017-12-09 12:31 | OPERATIVE REPORT E ---
Operative Report NAME: PERFECTO DIAZ : 1975 AGE: 41Y DATE OF SURGERY: 12/09/2017 ROOM: 209 PREOPERATIVE DIAGNOSIS: Abscesses of the right axilla and the left axilla. POSTOPERATIVE DIAGNOSIS: Abscesses of the right axilla and the left axilla. PROCEDURE DONE: Incision and drainage of 3 small abscesses on the right axilla and a larger one on the left axilla. SURGEON: MEMO DASILVA M.D. INDICATION: This is a 41-year-old female with chronic off and on abscesses of both axilla. ANESTHESIA: Local MAC. DESCRIPTION OF PROCEDURE: After adequate IV sedation, the patient was placed in supine position with both arms extended and slightly elevated to expose both axilla. Both axilla were then prepped and draped in the usual sterile fashion. Appropriate timeout was called. Next, attention directed to the right axilla first. She had 3 small abscesses noted. Incision and drainage of all 3 areas were done. They were less than 1 cm each and quite superficial. Cultures were obtained on one area. Hemostasis was obtained with cautery. The left axilla was then probed through the site with some drainage. It appears that the probe was going further down deep. Because of this, the local anesthesia infiltrated around the area and the probe was followed and incised. The incision was widened just enough to place a finger. The cavity was palpated and she has a thickened area and this is likely from a chronic infection. Part of the thickened area was removed with Allis clamp and with a 15-blade. Hemostasis obtained with cautery. The cavity was then packed with Iodoform gauze. Sterile dressings were placed over both axilla. The right axilla was covered with strips of Iodoform gauze prior to placement of the 4 x 4 and ABD pad. The patient tolerated the procedures well. Needle, instrument, and sponge counts were all correct. Estimated blood loss about 5 mL. DICTATING PHYSICIAN: MEMO DASILVA M.D. [id number] PHY#: [id number] ID: [id number] JOB#: [id number] ACCT: [id number] cc:MEMO DASILVA M.D. >
[2017-12-09] MEDS ORDERED: MORPHINE SULFATE 10 MG/ML INJ IV PRN (13:30)
[2017-12-09] MEDS ORDERED: HYDROCODONE/ACETAMINOPHEN 5-325 MG TABLET PO PRN (13:30)
[2017-12-09 16:15] VITALS: BP 145/58
--- NOTE | 2017-12-10 19:56 | DISCHARGE SUMMARY E ---
Discharge Summary NAME: PERFECTO DIAZ : 1975 AGE: 41Y ADMITTED: 12/08/2017 DISCHARGED: 12/09/2017 FINAL DIAGNOSIS: Multiple abscesses of both axillae and right labial area. PROCEDURE DONE: Incision and drainage of abscesses of both axillae, date 12/09/2017, surgeon Dr. Dasilva. HOSPITAL COURSE: This is a 41-year-old female who had multiple previous abscesses along both axillae in the past. She was noted to have an abscess of both axillae and subsequently admitted last night and placed on IV antibiotics. This morning patient underwent incision and drainage of abscesses of both axillae under IV sedation and local anesthesia. She did have a really small area of drainage on the right lower labial area that appears to have no collection. It appears that the patient may have hidradenitis of both axillae and the labial area. At any rate, patient was discharged today and given a prescription for clindamycin 300 mg p.o. q.i.d. x10 days. She will remove the packing on the left axilla in 2 days. There is no packing on the right axilla abscess. She was also instructed to do hot sitz baths 3 to 4 times a day x1 to 2 weeks to help heal the labial hidradenitis. She is supposed to follow up with her primary physician and in the surgical clinic in 2 weeks. DICTATING PHYSICIAN: MEMO DASILVA M.D. [id number] PHY#: [id number] ID: [id number] JOB#: [id number] ACCT: [id number] cc:MEMO DASILVA M.D. [facility],
== END 2017-12-09 16:55 | disposition home or self-care (01) ==
LOC: ER 16:49 → EH 18:58 → INTOOBSV 18:58 → 2N 21:19
PROVIDERS: ATTEND Surgery
PROC: 0H9BXZZ Drainage of Right Upper Arm Skin, External Approach (ICD-10-PCS; 2017-12-09)
PROC: 0H9CXZZ Drainage of Left Upper Arm Skin, External Approach (ICD-10-PCS; principal; 2017-12-09 09:30)
DX: L02.412 Cutaneous abscess of left axilla (principal); L02.411 Cutaneous abscess of right axilla; N76.4 Abscess of vulva; L73.2 Hidradenitis suppurativa; I25.10 Atherosclerotic heart disease of native coronary artery without angina pectoris; Z87.891 Personal history of nicotine dependence; Z95.5 Presence of coronary angioplasty implant and graft
CPT/HCPCS: 93005; 99285; 36415; 87040; 87070; 87205; 85025; 87075; 80053; 71046; 93010; 10061; G0378 ×3; J2250; J3490 ×5; J1100; J3010; J2765; J2270; J2405 ×2; J7060; J2704; J3370 ×2; J0131; 400; A6266

== ENCOUNTER 2018-10-27 07:50 | Emergency (ER) | payer OTHER ==
[2018-10-27] MEDS ORDERED: ACETAMINOPHEN 325 MG TABLET PO ONE (09:44)
[2018-10-27] MEDS ORDERED: DIPHENHYDRAMINE HCL 50 MG/ML VIAL IV ONE (10:00)
[2018-10-27] MEDS ORDERED: MORPHINE SULFATE 10 MG/ML INJ IV ONE ×2 (10:00→12:32)
[2018-10-27] MEDS ORDERED: METHOCARBAMOL INJ/PF 1000 MG/10 ML SDV IV ONE ×2 (10:01→14:17)
[2018-10-27] MEDS ORDERED: ONDANSETRON HCL INJ/PF 4 MG/2 ML SDV IV ONE ×3 (10:35→12:33)
--- NOTE | 2018-10-27 12:32 | ER Document Report ---
Entered by JOSE LUIS HARRINGTON SCRIBE 10/27/18 0959 Acting as scribe for:NAHED ZHAO MD ED Neck/Back Problem - General Chief Complaint: Back Pain Stated Complaint: BACK PAIN Time Seen by Provider: 10/27/18 09:49 Primary Care Provider: DIEGO DYE MD [Primary Care Provider] - Follow up as needed Mode of Arrival: Wheelchair Information source: Patient Notes: Patient is a 42-year-old female who presents to the emergency department today with complaints of back pain that began this morning while at work at around 7:25 a.m. 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 Patient then goes on to add that she has had a very mild backache for the last week in this same area. Patient states for the last week she has been using icy hot which did take away the symptoms for the most part. Patient states she "could not move or walk when the pain began". Patient states that the most severe pain seems to be located on the left-hand side of her back. Patient states her last menstrual period was 2 days ago, stating it usually only lasts for 1 day as she is on the Depo-Provera shot. TRAVEL OUTSIDE OF THE [place] IN LAST 30 DAYS: No COUNTRY TRAVELED TO/FROM: [facility] - Related Data Allergies/Adverse Reactions: ibuprofen [From Motrin] Allergy (Verified 10/27/18 08:03) Penicillins Allergy (Verified 10/27/18 08:03) Past Medical History - General Information source: Patient - Social History Smoking Status: Former Smoker Cigarette use (# per day): No Chew tobacco use (# tins/day): No Frequency of alcohol use: None Drug Abuse: None Lives with: Family Family History: Reviewed & Not Pertinent Patient has suicidal ideation: No Patient has homicidal ideation: No - Past Medical History Cardiac Medical History: Reports: Hx Coronary Artery Disease, Hx Heart Attack, Hx Hypercholesterolemia, Hx Hypertension Pulmonary Medical History: Reports: Hx Bronchitis - not since quit smoking Neurological Medical History: Reports: Hx Seizures GI Medical History: Reports: Hx Gastroesophageal Reflux Disease Musculoskeletal Medical History: Reports Hx Arthritis Psychiatric Medical History: Reports: Hx Attention Deficit Hyperactivity Disorder Past Surgical History: Reports: Hx Cardiac Surgery, Hx Coronary Stent - Immunizations Hx Diphtheria, Pertussis, Tetanus Vaccination: No Review of Systems - Review of Systems Constitutional: No symptoms reported EENT: No symptoms reported Cardiovascular: No symptoms reported Respiratory: No symptoms reported Gastrointestinal: No symptoms reported Genitourinary: No symptoms reported Female Genitourinary: No symptoms reported Musculoskeletal: See HPI, Back pain Skin: No symptoms reported Hematologic/Lymphatic: No symptoms reported Neurological/Psychological: No symptoms reported -: Yes All other systems reviewed and negative Physical Exam - Vital signs Vitals: Temp Pulse Resp BP Pulse Ox 97.7 F 143 H 22 H 188/106 H 96 10/27/18 08:02 10/27/18 08:02 10/27/18 08:02 10/27/18 08:02 10/27/18 08:02 - Notes Notes: Physical Exam: General: Alert, appears uncomfortable, morbidly obese. HEENT: Normocephalic. Atraumatic. PERRL. Extraocular movements intact. Neck: Supple. Non-tender. Respiratory: No respiratory distress. Abdominal: Morbidly obese. No distension. Normal Bowel Sounds. Back: Patient sitting in a wheelchair, requests to stay seated in the chair during exam secondary to pain. Mild lumbar musculature tenderness with palpation on the right, more severe lumbar musculature tenderness on the left with associated muscle spasm. There is pain with palpation over the spinous processes' on the left side as well. Extremities: Moves all four extremities. Upper extremities: Normal inspection. Normal ROM. Lower extremities: Normal inspection. No edema. Normal ROM. Neurological: Normal cognition. AAOx4. Normal speech. Psychological: Normal affect. Normal Mood. Skin: Warm. Dry. Normal color. Course - Re-evaluation Re-evalutation: 10/27/18 14:15 Patient is laying on her left side on stretcher at this time. Palpating the right lumbar back, patient yells out in pain with very light palpation to the skin and subcutaneous tissues, I am not sure I was pushing hard enough to actually palpate the muscles underneath. I did not check the left side where her primary complaint is located. I did demonstrate to her on her arm the amount of pressure I was using on her low back and she recognized that that was a minimal pressure and apologized for yelling at me. She then wanted to know why it hurt so badly. - Vital Signs Vital signs: Temp Pulse Resp BP Pulse Ox 97.7 F 82 22 H 158/70 H 100 10/27/18 08:02 10/27/18 09:24 10/27/18 08:02 10/27/18 12:01 10/27/18 12:01 Discharge - Discharge Clinical Impression: Lumbar back sprain Qualifiers: Encounter type: initial encounter Qualified Code(s): S33.5XXA - Sprain of ligaments of lumbar spine, initial encounter Condition: Stable Disposition: HOME, SELF-CARE Additional Instructions: Low Back Pain Three out of every four people will have an episode of disabling back pain during their lifetime. Most commonly the pain is due to straining of the muscles and ligaments in the low back. Usual treatment includes: (1) Rest on a firm surface. Avoid lying on your stomach. (2) Ice pack the painful area. After a few days, gentle heat may be used intermittently to relax the area, or ice packs can be continued. (3) Medication may be needed -- muscle relaxers and antiinflammatory medicines are commonly used. (4) As the back improves, exercises are prescribed to strengthen the back and abdominal muscles. Your doctor will advise you on the proper care for your back at each stage in your recovery. You may be better in a few days -- or healing may take several weeks. If new symptoms of a "herniated disc" (radiation of pain, numbness, or tingling down the back of the leg or weakness in the leg) occur, you should be re-examined. Further testing may be necessary. Take medications as prescribed. Take 2 Aleve every 12 hours. Use moist heat to the painful low back. Rest your back for the next 1 to 2 days. Avoid activity that makes the back pain worse. Follow-up with your primary care provider on Tuesday or Tuesday if not improving. RETURN TO THE EMERGENCY ROOM IF ANY NEW OR WORSENING SYMPTOMS. Prescriptions: Oxycodone HCl/Acetaminophen [Percocet 5-325 mg Tablet] 1 tab PO ASDIR PRN #15 tablet PRN Reason: Methocarbamol [Robaxin 750 mg Tablet] 750 mg PO ASDIR PRN #40 tablet PRN Reason: Forms: Return to Work Referrals: BRADLEY MCCALL, [facility] [NO LOCAL MD] - Follow up as needed Scribe Attestation: 10/27/18 15:34 I personally performed the services described in the documentation, reviewed and edited the documentation which was dictated to the scribe in my presence, and it accurately records my words and actions. I personally performed the services described in the documentation, reviewed and edited the documentation which was dictated to the scribe in my presence, and it accurately records my words and actions.
[2018-10-27] MEDS ORDERED: NAPROXEN 250 MG TABLET PO ONE (14:17)
[2018-10-27 16:08] VITALS: BP 155/70
== END 2018-10-27 16:08 | disposition home or self-care (01) ==
LOC: ER 07:50
DX: S33.5XXA Sprain of ligaments of lumbar spine, initial encounter (principal); M54.9 Dorsalgia, unspecified; X58.XXXA Exposure to other specified factors, initial encounter; Y99.0 Civilian activity done for income or pay; Z87.891 Personal history of nicotine dependence; I25.10 Atherosclerotic heart disease of native coronary artery without angina pectoris; I10 Essential (primary) hypertension; E66.01 Morbid (severe) obesity due to excess calories
CPT/HCPCS: J1200; J2800; J2270; J2405

== ENCOUNTER 2020-03-07 18:06 | Emergency (ER) | payer SELFPAY ==
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
--- NOTE | 2020-03-07 19:44 | EKG REPORT ---
SEVERITY:- NORMAL ECG - SINUS RHYTHM : Confirmed by: Coleman Britt MD 07-Mar-2020 19:43:48
[2020-03-07 19:58] LABS: ABSOLUTE BASOPHILS # (AUTO) 0.1 10^3/uL (0.0-0.2); ABSOLUTE EOSINOPHILS # (AUTO) 0.2 10^3/uL (0.0-0.6); ABSOLUTE LYMPHOCYTES (AUTO) 2.7 10^3/uL (0.5-4.7); ABSOLUTE MONOCYTES (AUTO) 0.8 10^3/uL (0.1-1.4); ABSOLUTE NEUT (AUTO) 8.4 10^3/uL (1.7-8.2); BASOPHILS % (AUTO) 0.6 % (0-2); EOSINOPHILS % (AUTO) 1.3 % (0-6); HEMATOCRIT 40.9 % (36.0-47.0); HEMOGLOBIN 13.7 g/dL (12.0-15.5); LYMPHOCYTES % (AUTO) 21.8 % (13-45); MEAN CORPUSCULAR HEMOGLOBIN 30.1 pg (27.0-33.4); MEAN CORPUSCULAR HGB CONC 33.4 g/dL (32.0-36.0); MEAN CORPUSCULAR VOLUME 90 fl (80-97); MONOCYTES % (AUTO) 6.9 % (3-13); PLATELET COUNT 300 10^3/uL (150-450); RED BLOOD COUNT 4.54 10^6/uL (3.72-5.28); RED CELL DISTRIBUTION WIDTH 13.4 % (11.5-14.0); SEGMENTED NEUTROPHILS % (AUTO) 69.4 % (42-78); TOTAL CELLS COUNTED % (AUTO) 100 %; WHITE BLOOD COUNT 12.1 10^3/uL (4.0-10.5)
[2020-03-07] MEDS ORDERED: ACETAMINOPHEN 325 MG TABLET PO ONE (20:06)
[2020-03-07] MEDS ORDERED: ACETAMINOPHEN 325 MG TABLET ONE (20:08)
[2020-03-07 20:14] LABS: APPEARANCE,URINE SLIGHTLY-CLOUDY; BILIRUBIN,URINE NEGATIVE (NEGATIVE); COLOR,URINE YELLOW; GLUCOSE, URINE NEGATIVE (NEGATIVE); KETONES,URINE NEGATIVE (NEGATIVE); LEUKOCYTE ESTERASE,URINE SMALL (NEGATIVE); NITRITE,URINE NEGATIVE (NEGATIVE); PROTEIN,URINE NEGATIVE (NEGATIVE); URINE SPECIFIC GRAVITY 1.025
[2020-03-07 20:16] LABS: ALBUMIN 4.1 g/dL (3.5-5.0); ALKALINE PHOSPHATASE 84 U/L (38-126); ANION GAP 10 (5-19); ASPARTATE AMINO TRANSFERASE 18 U/L (14-36); BILIRUBIN,DIRECT 0.2 mg/dL (0.0-0.4); BILIRUBIN,TOTAL 0.5 mg/dL (0.2-1.3); BLOOD UREA NITROGEN 20 mg/dL (7-20); CALCIUM 9.6 mg/dL (8.4-10.2); CARBON DIOXIDE 25 mmol/L (22-30); CHLORIDE 103 mmol/L (98-107); GLUCOSE 113 mg/dL (75-110); POTASSIUM 4.4 mmol/L (3.6-5.0); TOTAL PROTEIN 7.6 g/dL (6.3-8.2)
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
[2020-03-07] MEDS ORDERED: CYCLOBENZAPRINE HCL 10 MG TABLET PO ONE (22:18)
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
[2020-03-08] MEDS ORDERED: ONDANSETRON 4 MG TAB.RAPDIS PO ONE (00:34)
[2020-03-08] MEDS ORDERED: DIAZEPAM 5 MG TABLET PO ONE (00:35)
[2020-03-08] MEDS ORDERED: OXYCODONE-ACETAMINOPHEN 5-325 MG TABLET PO ONE (00:35)
[2020-03-08 00:48] VITALS: BP 148/57
== END 2020-03-08 01:20 | disposition home or self-care (01) ==
LOC: ER 18:06
DX: S70.02XA Contusion of left hip, initial encounter (principal); S93.492A Sprain of other ligament of left ankle, initial encounter; S16.1XXA Strain of muscle, fascia and tendon at neck level, initial encounter; S39.012A Strain of muscle, fascia and tendon of lower back, initial encounter; M54.9 Dorsalgia, unspecified; R51.9 Headache, unspecified; R19.7 Diarrhea, unspecified; R00.2 Palpitations; V43.52XA Car driver injured in collision with other type car in traffic accident, initial encounter; I25.10 Atherosclerotic heart disease of native coronary artery without angina pectoris; E78.00 Pure hypercholesterolemia, unspecified; I10 Essential (primary) hypertension; Z88.0 Allergy status to penicillin; Z88.6 Allergy status to analgesic agent; I25.2 Old myocardial infarction
CPT/HCPCS: 93005; 99285; 36415; 85025; 80053; 81001; 84484; 73610; 72040; 71046; 73502; 72110; 93010; S0119